=== PATIENT | female | born 1945 | race Caucasian/White ===

== ENCOUNTER 2020-01-10 09:40 | Outpatient (CLI) | payer OTHER ==
[~2020-01-10 09:40] MED LIST: CLONAZEPAM2 MG; VASOTEC5 MG
== END 2020-01-10 09:52 | disposition home or self-care (01) ==
LOC: RX STUDY 09:40 → EDBD 09:40 → RX STUDY 09:52
DX: K56.600 Partial intestinal obstruction, unspecified as to cause (principal); R19.5 Other fecal abnormalities; K29.00 Acute gastritis without bleeding; K21.0 Gastro-esophageal reflux disease with esophagitis